=== PATIENT | male | born 1990 | race Caucasian/White ===

== ENCOUNTER 2023-06-28 19:58 | Outpatient (OUT) | payer OTHER, SELFPAY | END 2023-06-28 19:59 | disposition home or self-care (01) | LOC: SLEEP 19:58 | PROVIDERS: PCP Family Medicine; Visit Provider Family Medicine | DX: G47.33 Obstructive sleep apnea (adult) (pediatric) (principal); E66.3 Overweight | CPT/HCPCS: 95810 ==

== ENCOUNTER 2023-07-28 19:47 | Outpatient (OUT) | payer OTHER, SELFPAY ==
--- OUTSIDE RECORDS SUMMARY | 2023-07-29 10:10 | XMS_ITS | CCD ---
Author Name Unknown Address [address] [place] [address] Organization [facility] Care Team Providers Care Credit Front Office Developer Name Role Phone Unavailable Primary Care Provider Unavailabl e LORENA, ENESI O Referring Unavailable LORENA, ENESI O Referring Unavailable LORENA, ENESI O Referring Unavailable LORENA, ENESI O Referring Unavailable LORENA, ENESI O Referring Unavailable LORENA, ENESI O Referring Unavailable LORENA, ENESI O Referring Unavailable LORENA, ENESI O Referring Unavailable LORENA, ENESI O Referring Unavailable LORENA, ENESI O Referring Unavailable LORENA, ENESI O Referring Unavailable LORENA, ENESI O Referring Unavailable LORENA, ENESI O Referring Unavailable LORNEA, ENESI O Referring Unavailable BAESSLER, MAGGIE Referring Unavailable BAESSLER, MAGGIE Referring Unavailable BAESSLER, MAGGIE Referring Unavailable BAESSLER, MAGGIE Referring Unavailable BAESSLER, MAGGIE Referring Unavailable BAESSLER, MAGGIE Referring Unavailable BAESSLER, MAGGIE Referring Unavailable Unavailable Primary Care Provider Unavailabl e GABO FELICIANO Admitting Unavailable GABO FELICIANO Attending Unavailable DR OTILIA CARR Consulting Unavailable GABO FELICIANO Consulting Unavailable YOANDY ROMERO Admitting Unavailable YOANDY ROMERO Attending Unavailable DR OTILIA CARR Consulting Unavailable YOANDY ROMERO Consulting Unavailable DR MELINA ZHU Admitting Unavailable DR MELINA ZHU Attending Unavailable DR MELINA ZHU Consulting Unavailable ANKIT, DR KAMILA Mccray Consulting Unavailable Allergies Allergy Classification Reported Allergen(s) Allergy Type Date of Onset Reaction(s) Facility (4 sources) Acetaminophen / HYDROcodone Drug Allergy 5 [employer] Phone: (4 sources) Shellfish Propensity to adverse reactions to drug 5 Hives [employer] Phone: (4 sources) Sulfonamides (Antibiotic) Propensity to adverse reactions to drug 5 Itching [employer] Phone: (1 source) Acetaminophen / HYDROcodone Drug Allergy [facility] (1 source) Sulfonamides (Antibiotic) Drug allergy (disorder) [facility] Problems Problem Classification Problem Date Documented Da te Episodic/Chronic Fracture of lower limb (9 sources) Displaced fracture of fifth metatarsal bone, right foot, subsequent encounter for fracture with routine healing; Translations: [Displaced fracture of fifth metatarsal bone, right foot, initial encounter for closed fracture] Onset: 04-07-2022 Episodic Other connective tissue disease (4 sources) Pain in right foot; Translations: [PAIN IN RIGHT FOOT] Onset: 04-06-2022 Episodic Unclassified (4 sources) Closed fracture of distal right fibula Onset: 12-05-2018 12-05-2018 Results Test Name Value Interpretation Reference Range Facil ity XR ANKLE RIGHT (MIN 3 VIEWS) on 02-14-2019 XR ANKLE RIGHT (MIN 3 VIEWS) Imaging Studies 3 view xrays of the right ankle obtained on 02/06/19 were independently reviewed demonstrating maintained alignment of the distal fibula with some interval consolidation. Interpreted by: Pancho Bishop MD Signed by: Pancho Bishop MD 02/14/19 Final result Normal [facility] XR ANKLE RIGHT (MIN 3 VIEWS) on 12-05-2018 XR ANKLE RIGHT (MIN 3 VIEWS) EXAMINATION: 3 XRAY VIEWS OF THE RIGHT ANKLE 12/05/2018 8:37 am COMPARISON: 11/07/2018 HISTORY: ORDERING SYSTEM PROVIDED HISTORY: Closed fracture of right ankle with routine healing, subsequent encounter TECHNOLOGIST PROVIDED HISTORY: Ordering Physician Provided Reason for Exam: folow up to right ankle fracture 09/28/18 Acuity: Chronic Type of Exam: Subsequent/Follow-up Additional signs and symptoms: pain in top of foot FINDINGS: There is normal alignment of the right ankle. The talar dome is intact. The oblique fracture through the distal fibula is redemonstrated, however, there appears to be some callus formation across the fracture site. Minimal degenerative changes are noted along the tibiotalar joint. Mild soft tissue swelling is noted along the ankle, similar to prior. IMPRESSION: 1. Healing oblique fracture through the distal fibula. Interpreted by: Timothy Orta MD Signed by: Timothy Orta MD 12/05/18 Final result Normal [facility] XR ANKLE RIGHT (MIN 3 VIEWS) on 11-07-2018 XR ANKLE RIGHT (MIN 3 VIEWS) EXAMINATION: 3 XRAY VIEWS OF THE RIGHT ANKLE 11/07/2018 9:24 am COMPARISON: 10/07/2018, 09/28/2018 HISTORY: ORDERING SYSTEM PROVIDED HISTORY: Closed fracture of right ankle with routine healing, subsequent encounter TECHNOLOGIST PROVIDED HISTORY: Ordering Physician Provided Reason for Exam: Pt has hx of ankle fx 6 weeks ago. Follow up today with Ortho doctor Acuity: Acute Type of Exam: Subsequent/Follow-up FINDINGS: Interval removal of cast material. No change in position or alignment of an oblique distal fibular fracture. There is mild overlying soft tissue swelling. Fracture line remains visible with mild regional periosteal reaction. No new fractures are seen. IMPRESSION: Incompletely healed distal fibular fracture. Interpreted by: Boaz Moore MD Signed by: Boaz Moore MD 11/07/18 Final result Normal [facility] Encounters Encounter Date Encounter Type Care Provider Facility Start: 05-27-2022 End: 05-28-2022 ambulatory GABO FELICIANO Facility:[facility] Start: 04-28-2022 End: 04-29-2022 ambulatory YOANDYJUVENAL ROMERO Facility:[facility] Start: 04-06-2022 End: 04-07-[address] MELINA ZHU Facility:[facility] Start: 09-19-2019 End: 09-20-2019 Patient encounter procedure MAGGIE ROSADO [facility] Start: 09-19-2019 End: 09-19-2019 Subsequent hospital visit by physician [facility] Start: 09-14-2019 End: 09-15-2019 Patient encounter procedure MAGGIE ROSADO [facility] Start: 09-14-2019 End: 09-14-2019 Subsequent hospital visit by physician [facility] Start: 09-11-2019 End: 09-12-2019 Patient encounter procedure MAGGIE ROSADO [facility] Start: 09-11-2019 End: 09-11-2019 Subsequent hospital visit by physician [facility] Start: 09-06-2019 End: 09-07-2019 [facility] Start: 09-04-2019 End: 09-05-2019 Patient encounter procedure MAGGIE Lan [facility] Start: 08-30-2019 End: 08-31-2019 Patient encounter procedure MAGGIE Lan [facility] Start: 08-28-2019 End: 08-29-2019 [facility] Start: 08-28-2019 End: 08-28-2019 Subsequent hospital visit by physician [facility] Comment on above: Arrived Start: 02-06-2019 End: 02-06-2019 Patient encounter procedure PANCHO BISHOP [facility] Start: 12-29-2018 End: 12-30-2018 Patient encounter procedure PANCHO BISHOP [facility] Start: 12-22-2018 End: 12-23-2018 Patient encounter procedure PANCHO BISHOP [facility] Start: 12-20-2018 End: 12-21-2018 Patient encounter procedure PANCHO BISHOP [facility] Start: 12-15-2018 End: 12-16-2018 Patient encounter procedure PANCHO BISHOP [facility] Start: 12-13-2018 End: 12-14-2018 Patient encounter procedure PANCHO BISHOP [facility] Start: 12-08-2018 End: 12-09-2018 Patient encounter procedure ENLIS BISHOP [facility] Start: 12-06-2018 End: 12-07-2018 Patient encounter procedure ENLIS BISHOP [facility] Start: 12-05-2018 End: 12-08-2018 Patient encounter procedure PANCHO BISHOP [facility] Start: 11-29-2018 End: 11-30-2018 Patient encounter procedure PANCHO BISHOP [facility] Start: 11-24-2018 End: 11-25-2018 Patient encounter procedure ENLIS BISHOP [facility] Start: 11-22-2018 End: 11-23-2018 Patient encounter procedure PANCHO BISHOP [facility] Start: 11-07-2018 End: 11-10-2018 Patient encounter procedure [facility]ISHOP [facility] Procedures Date Procedure Procedure Detail Performing Clinician Start: 02-06-2019 Radex ankle complete minimum 3 views ENESI LORENA Start: 12-05-2018 Radex ankle complete minimum 3 views ENESI LORENA Start: 11-07-2018 Radex ankle complete minimum 3 views ENESI LORENA Plan of Treatment Date Care Activity Detail Author Start: 2042 Shingles Vaccine (1 of 2) Shingles Vaccine (1 of 2) [employer] Phone: Start: 09-19-2019 End: 09-19-2019 Appointment 09/19/2019 Appointment Physical Therapy Agustin Bartlett, PT [facility] Start: 09-14-2019 End: 09-14-2019 Appointment 09/14/2019 Appointment Physical Therapy Agustin Bartlett, PT [facility] Start: 09-13-2019 End: 09-13-2019 Patient encounter procedure 09/13/2019 Appointment Physical Therapy Agustin Bartlett, PT [facility] Start: 09-11-2019 End: 09-11-2019 Patient encounter procedure 09/11/2019 Appointment Physical Therapy Agustin Bartlett, PT [facility] Start: 09-06-2019 End: 09-06-2019 Patient encounter procedure 09/06/2019 Appointment Physical Therapy Agustin Bartlett, PT [facility] Start: 09-04-2019 End: 09-04-2019 Patient encounter procedure 09/04/2019 Appointment 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 [facility] Start: 08-30-2019 End: 08-30-2019 Patient encounter procedure 08/30/2019 Appointment 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 [facility] Start: 04-09-2019 Influenza vaccination Flu vaccine (# 1) [employer] Phone: Start: 2007 HIV screen HIV screen [employer] Phone: Start: 2003 DTaP/Tdap/Td vaccine (1 - Tdap) DTaP/Tdap/Td vaccine (1 - Tdap) [employer] Phone: Start: 2003 DTaP/Tdap/Td vaccine (6 - Tdap) DTaP/Tdap/Td vaccine (6 - Tdap) [employer] Phone: Start: 1998 Pneumococcal 0-64 ye ars Vaccine (1 of 1 - PPSV23) Pneumococcal 0-64 years Vaccine (1 of 1 - PPSV23) [employer] Phone: Start: 1993 Varicella Vaccine (1 of 2 - 2-dose childhood series) Varicella Vaccine (1 of 2 - 2-dose childhood series) [employer] Phone: Payers Date Payer Category Payer Unknown [employer] [facility] xxxxxxxxxxxx 2018-Present [phone] [address] [place] [address] xxxxxxxxxxxx [id number] 2018 Unknown [id number] 1990 Unknown [id number] [id number]5 1992 Unknown [id number] 2.16.840.1.038226.3.579.2.175 1992 Unknown [id number] 2.16.840.1.474705.3.579.2.175 1992 Unknown [id number] 2.16.840.1.442020.3.579.2.175 1992 Unknown [id number] 2.16.840.1.423855.3.579.2.175 1992 Unknown [id number] 2.16.840.1.137237.3.579.2.175 1992 Unknown [id number] 2.16.840.1.841673.3.579.2.175 1992 Unknown [id number] 2.16.840.1.814523.3.579.2.175 1992 Unknown [id number] 2.16.840.1.773927.3.579.2.175 1992 Unknown [id number] 2.16.840.1.588927.3.579.2.175 1992 Unknown [id number] 2.16.840.1.164883.3.579.2.175 1992 Unknown [id number] 2.16.840.1.111233.3.579.2. 1992 Unknown [id number] 2.16.840.1.796585.3.579.2. 1992 Unknown [id number] 2.16.840.1.860442.3.579.2.175 1992 Unknown [id number] 2.16.840.1.703024.3.579.2.175 1992 Unknown [id number] 2.16.840.1.152314.3.579.2. 1992 Unknown [id number] 2.16.840.1.857411.3.579.2.175 1992 Unknown [id number] 2.16.840.1.237358.3.579.2.175 1992 Unknown [id number] 2.16.840.1.529076.3.579.2.175 1992 Unknown [id number] 2.16.840.1.579881.3.579.2.175 1992 Unknown [id number] 2.16.840.1.496623.3.579.2.175 1992 Unknown [id number] 2.16.840.1.334228.3.579.2.175 1992 Unknown [id number] 2.16.840.1.305286.3.579.2.593 1992 Unknown [id number] 2.16.840.1.888757.3.579.2.593 1992 Unknown [id number] 2.16.840.1.006383.3.579.2.593 1959 Unknown [id number] Social History Date Type Detail Facility Start: 02-06-2019 [facility] [employer] Phone: History of tobacco use Cigar Smoker [employer] Phone: Start: 02-06-2019 Alcohol intake Current drinke r of alcohol (finding) [employer] Phone: Start: 09-28-2018 Alcohol Comment 3 times a week [employer] Phone: Sex Assigned At Not on file [employer] Phone: Start: 09-28-2018 Alcohol Comment 3 times a week [employer] Phone: Clinical Note 05-27-2022 Note Date & Type Note Facility 05-27-2022 Note PROCEDURE: XR FOOT R T MIN 3 VIEWS HISTORY: Pain in right foot ; fifth metatarsal fracture follow-up COMPARISON: XR foot right 04/28/2022 FINDINGS: BONES:Mildly displaced oblique fracture of the fifth metatarsal with increased density at fracture line and moderate calcification along the margins. No involvement of the articular surfaces. SOFT TISSUES:No visible soft tissue swelling. EFFUSION:None visible. OTHER: Negative. IMPRESSION: 1. Stable alignment and ongoing bone healing of fifth metatarsal fracture. Electronically authenticated by: OTILIA CARR Date: 2022-05-27 20:37 [facility] Clinical Note 04-28-2022 Note Date & Type Note Facility 04-28-2022 Note PROCEDURE: XR FOOT R T MIN 3 VIEWS HISTORY: Pain in right foot COMPARISON: XR foot right 04/06/2022 FINDINGS: BONES:Oblique fracture of the fifth metatarsal diaphysis with mild displacement, and slightly greater widening of the fracture line compared to prior study. SOFT TISSUES:No visible soft tissue swelling. EFFUSION:None visible. OTHER: Negative. IMPRESSION: 1. Mildly displaced fifth metatarsal diaphyseal fracture. Widening of the fracture line may represent bone resorption as part of early healing process, or slight movement since original study. No callus formation at this time. Electronically authenticated by: OTILIA CARR Date: 2022-04-28 16:06 [facility] Clinical Note 04-06-2022 Note Date & Type Note Facility 04-06-2022 Note PROCEDURE: XR FOOT R T MIN 3 VIEWS COMPARISON: None. HISTORY: Pain in right foot FINDINGS: BONES:Acute oblique extra-articular fracture involving the diaphysis of the fifth metatarsal with distraction up to 2.7 mm. No significant angulation or dislocation. SOFT TISSUES:Negative. No visible soft tissue swelling. EFFUSION:None visible. 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 [address] P: F: [x] [facility] [address] P: F: [] [facility] [address] P: F: Physical Therapy Daily Treatment/Discharge Note Date: 09/19/2019 Patient Name: Mary Anne Canales : 1990 Physician: GUEVARA Shrestha Insurance: [facility] (60 visits/yr; no copay, ded 4000/0 met, 10%) Medical Diagnosis: LBP Rehab Codes: M54.5 Onset Date: 05/09/19 Next 's appt.: after PT ends Visit# / total visits: 02/17 Cancels/No Shows: 0/0 Subjective: Pain: [x] Yes [] No Location: LBP Pain Rating: (0-10 scale) 110 last night and now Pain altered Tx: [x] No [] Yes Action: Comments: he feels that his LBP has improved significantly since his press up ROM has improved. Very minimal discomfort and he feels that he can manage his symptoms and is ready for DC Objective:Today s Treatment: Modalities: none Precautions: standard Exercises: Exercise Reps/ Time Weight/ Level Comments Prone prop 5' x 1/2 kneel hip flexor S 3x30 bilat Supine piriformis S 3x30 bilat Rocking Piri stretch 5x15 Prone press ups 3x10 x with exhale for sag and/or manual OP [place] S 3x30 Issued for HEP Other: Manual 1. Hypervolt to damian glut med on medium setting Specific Instructions for next treatment: Treatment Charges: Mins Units [] Modalities [] Ther Exercise [x] Manual Therapy 15 1 [] Ther Activities [] Aquatics [] Vasocompression [] Other Total Treatment time 15 1 Assessment: [x] Progressing toward goals: pt states he has achieved his goals and is now independent with symptom management. Pt states he is pleased with his progress and status [] No change. [] Other: STG: (to be met in 6 treatments) 1. ? Pain:<3/10 2. ? ROM: full hip ext 3. ? Strength: 5/5 with all hip movements damian 4. ? Function: Owestry score <10% 5. Independent with Home Exercise Programs LTG: (to be met in 12 treatments) 1. No LBP 2. Oswestry score <5% 3. No issues with sitting or bending. Patient goals: to strengthen core back muscles so the pain goes away Pt. Education: [x] Yes [] No [x] Reviewed Prior HEP/Ed Method of Education: [x] Verbal [] Demo [] Written Comprehension of Education: [x] Verbalizes understanding. [] Demonstrates understanding. [] Needs review. [] Demonstrates/verbalizes HEP/Ed previously given. Plan: [] Continue per plan of care. [x] Other:DC to HEP per pt request Time In: 1200 Time Out: 1218 Electronically signed by: Agustin Bartlett PT documented in this encounter Summary Purpose Family History No Family History Records FoundNo Family History Records Found Additional Source Comments (unrecognized sect ion and content) No Status Records FoundNo Status Records Found INFORMATION SOURCE (unrecogn ized section and content) DATE CREATED AUTHOR 09/20/2019 [facility] DATE CREATED AUTHOR AUTHOR'S ORGANIZ ATION 06/01/2022 [facility] Reason for Visit (unrecogniz ed section and content) Status Reason Specialty Diagnoses / Procedures Referred By Contact Referred To Contact Closed Physical Therapy Diagnoses Lumbago with sciatica, unspecified side Procedures eval and treat Maggie Rosado, RESIDENT CARE SUPERVISOR - EQUIPMENT ENGINEERING TECHNICIAN [address] [place] [address] Agustin Bartlett, TAWNYA FOR RECORDS PERTAINING TO PATIENTS WHO ARE OR HAVE BEEN ENROLLED IN A CHEMICAL DEPENDENCY/SUBSTANCEABUSE PROGRAM, SOME INFORMATION MAY BE OMITTED. This clinical summary was aggregated from multiple sources. Caution should be exercised in using it in the provision of clinical care. This summary normalizes information from multiple sources, and as a consequence, information in this document may materially change the coding, format and clinical context of patient data. In addition, data may be omitted in some cases. CLINICAL DECISIONS SHOULD BE BASED ON THE PRIMARY CLINICAL RECORDS. [employer] [facility] provides no warranty or guarantee of the accuracy or completeness of information in this document.
== END 2023-07-28 19:48 | disposition home or self-care (01) ==
LOC: SLEEP 19:47
PROVIDERS: PCP Family Medicine; Visit Provider Family Medicine
DX: G47.33 Obstructive sleep apnea (adult) (pediatric) (principal)
CPT/HCPCS: 95811